=== PATIENT | female | born 1955 | race Caucasian/White ===

== ENCOUNTER 2017-12-23 17:56 | Emergency (ER) | payer OTHER, MEDICAID ==
[~2017-12-23] VITALS: Ht 170.2 cm; Wt 69.0 kg
[2017-12-23] MEDS ORDERED: NITROGLYCERIN0.4 MG SUBLING (18:28)
[2017-12-23] MEDS ORDERED: NORCO 5-325 TA1 EAC1 PO (19:35)
[2017-12-23 19:56] VITALS: BP 166/69
== END 2017-12-23 19:57 | disposition home or self-care (01) ==
LOC: M.ERS 17:56
DX: S60.222A Contusion of left hand, initial encounter (principal); I21.9 Acute myocardial infarction, unspecified; Z95.5 Presence of coronary angioplasty implant and graft; W01.0XXA Fall on same level from slipping, tripping and stumbling without subsequent striking against object, initial encounter; Y93.89 Activity, other specified; Y92.89 Other specified places as the place of occurrence of the external cause; Y99.8 Other external cause status

== ENCOUNTER 2018-03-07 21:12 | Inpatient (IN) | payer OTHER, MEDICAID ==
[~2018-03-07] VITALS: Ht 167.6 cm; Wt 70.8 kg
[~2018-03-07 21:12] MED LIST: NITROGLYCERIN0.4 MG SUBLING; NORCO 5-325 TA1 EAC1 PO
[2018-03-07 21:14] VITALS: BP 180/83
[2018-03-07 21:31] LABS: ABSOLUTE BASOPHILS 0.1 thou/uL (0.0-0.2); ABSOLUTE EOSINOPHILS 0.3 thou/uL (0.0-0.7); ABSOLUTE LYMPHOCYTES 2.8 thou/uL (0.8-5.3); ABSOLUTE MONOCYTES 0.5 thou/uL (0.0-1.2); ABSOLUTE NEUTROPHILS 3.8 thou/uL (1.6-8.1); BASOPHILS 0.8 %; EOSINOPHILS 3.7 %; HEMATOCRIT 43.4 % (37.0-47.0); HEMOGLOBIN 14.4 gm/dL (12.0-15.0); LYMPHOCYTES 37.3 %; MCH 28.7 pg (26.0-34.0); MCHC 33.3 g/dL (28.0-37.0); MCV 86.3 fL (80.0-100.0); MONOCYTES 6.7 %; MPV 7.9 fl. (7.2-11.1); NUCLEATED RBCS 0 /100WBC; PLATELET COUNT* 367 thou/uL (150-400); POLYS 51.5 %; RBC 5.02 mil/uL (4.20-5.00); RDW-CV 13.8 % (10.5-14.5); WBC 7.4 thou/uL (4.0-11.0)
[2018-03-07 22:10] LABS: URINE BILIRUBIN NEGATIVE (Negative); URINE BLOOD NEGATIVE (Negative); URINE CLARITY CLEAR; URINE COLOR YELLOW; URINE GLUCOSE-RANDOM NEGATIVE (Negative); URINE KETONES 1+ (Negative); URINE LEUKOCYTES TRACE (Negative); URINE NITRITE POSITIVE (Negative); URINE PROTEIN NEGATIVE (Negative); URINE SPECIFIC GRAVITY 1.025 (1.005-1.030); URINE UROBILINOGEN 0.2 E.U./dl (0.2-1.0)
[2018-03-07 22:17] LABS: MUCUS >6 Heavy strn/LPF (None Seen); SQUAMOUS 4-10 Moderate /LPF (0-3)
[2018-03-07 22:18] LABS: BACTERIA >30 Many /HPF (None Seen); CRYSTALS None Seen /LPF (None Seen); HYALINE CASTS 0-3 Few /LPF (None Seen); URINE RBC 0-2 Rare /HPF (0-2); URINE WBC 6-15 Few /HPF (0-5)
[2018-03-07 22:21] LABS: ANION GAP 8 mmol/L (7-16); BUN 12 mg/dL (7-18); CALCIUM 8.7 mg/dL (8.5-10.1); CHLORIDE 100 mmol/L (98-107); CO2 30 mmol/L (21-32); CREATININE 0.9 mg/dL (0.6-1.3); GLUCOSE 157 mg/dL (70-99); POTASSIUM 3.9 mmol/L (3.5-5.1); SODIUM 138 mmol/L (136-145)
[2018-03-07 22:24] LABS: ALBUMIN 3.4 g/dL (3.4-5.0); ALKALINE PHOSPHATASE 130 U/L (46-116); PHOSPHORUS* 4.4 mg/dL (2.5-4.9); SGOT 28 U/L (15-37); SGPT 23 U/L (30-65); TOTAL BILIRUBIN 0.1 mg/dL (<0.1-1.0); TOTAL PROTEIN 8.4 g/dL (6.4-8.2); TROPONIN-I LEVEL <0.06 ng/mL (<0.06)
[2018-03-08] VITALS (40 sets, daily range): BP systolic 120–165; BP diastolic 41–68
[2018-03-08] LABS: AMP/METHAMP Negative (Negative); BARBITURATES Negative (Negative); BENZODIAZEPINES Negative (Negative); COCAINE Negative (Negative); METHADONE Negative (Negative); OPIATES Negative (Negative); PCP Negative (Negative); THC Negative (Negative)
[2018-03-08 10:59] LABS: ALBUMIN 2.8 g/dL (3.4-5.0); ALKALINE PHOSPHATASE 113 U/L (46-116); ANION GAP 7 mmol/L (7-16); BUN 13 mg/dL (7-18); CALCIUM 8.3 mg/dL (8.5-10.1); CHLORIDE 106 mmol/L (98-107); CHOLESTEROL 133 mg/dL (<200); CO2 28 mmol/L (21-32); CREATININE 0.7 mg/dL (0.6-1.3); GLUCOSE 88 mg/dL (70-99); HDL CHOLESTEROL 39 mg/dL (>40); LDL CHOLESTEROL 83 mg/dL (<100); POTASSIUM 4.1 mmol/L (3.5-5.1); SGOT 21 U/L (15-37); SGPT 24 U/L (30-65); SODIUM 141 mmol/L (136-145); TC:HDL 3.4 Ratio (Not establshd); TOTAL BILIRUBIN 0.3 mg/dL (<0.1-1.0); TOTAL PROTEIN 7.1 g/dL (6.4-8.2); TRIGLYCERIDE 57 mg/dL (<150); VLDL 11 mg/dL (<40)
--- NOTE | 2018-03-08 11:00 | EKG ---
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
[2018-03-08 11:01] LABS: SERUM ASSESSMENT Clear
[2018-03-08 13:28] LABS: BE 0.8 mmol/L (-2 to +3); PCO2 43.7 mmHg (35.0-45.0); PO2 116.4 mmHg (75.0-100.0); pH 7.393 (7.340-7.450)
--- NOTE | 2018-03-08 18:19 | 2DMMODE ---
[place] [address] 2 D/M-MODE ECHOCARDIOGRAM Name: HEADLILLIAM Room: [address] IN [facility]#: [id number] Admission: 03/08/18 Attend Phys: Earl Copeland, Discharge: Date of : 59 Date of Service: 03/08/18 1819 Report #: [id number] THIS REPORT FOR: //name// APPROVED REPORT Study performed: 03/08/2018 14:46:17 EXAM: Comprehensive 2D, Doppler, and color-flow Echocardiogram Patient Location: In-Patient Room #: [facility] Status: routine BSA: 1.78 HR: 50 bpm BP: 139/53 mmHg Rhythm: NSR Other Information Study Quality: Good Indications CVA/TIA Echo Enhancing Agent Indication: Rule out Shunt Agent(s) / Amount(s) Used: Agitated Saline 10 cc 2D Dimensions IVSd: 14.25 (7-11mm) LVOT Diam: 18.68 (18-24mm) LVDd: 38.55 mm PWd: 12.58 (7-11mm) Ascending Ao: 29.24 (22-36mm) LVDs: 16.39 (25-40mm) Aortic Root: 30.17 mm Volumes Left Atrial Volume (Systole) LA ESV Index: 26.20 mL/m2 Aortic Valve AoV Peak Ernesto.: 1.28 m/s AO Peak Gr.: 6.59 mmHg LVOT Max P.54 mmHg AO Mean Gr.: 3.09 mmHg LVOT Mean P.57 mmHg LVOT Max V: 0.94 m/s AO V2 VTI: 27.43 cm LVOT Mean V: 0.57 m/s GULSHAN (VTI): 2.25 cm2 LVOT V1 VTI: 22.48 [place] [address] 2 D/M-MODE ECHOCARDIOGRAM Name: LILLIAM HEAD Room: [address] IN ..#: [id number] Admission: 03/08/18 Attend Phys: Earl Copeland, Discharge: Date of : 59 Date of Service: 03/08/18 1819 Report #: [id number] Mitral Valve E/A Ratio: 1.37 MV Decel. Time: 236.20 ms MV E Max Ernesto.: 0.86 m/s MV PHT: 68.50 ms MVA (PHT): 3.21 cm2 TDI E/Lateral E': 6.62 E/Medial E': 7.82 Medial E' Ernesto.: 0.11 m/s Lateral E' Ernesto.: 0.13 m/s Pulmonary Valve PV Peak Ernesto.: 0.88 m/s PV Peak Gr.: 3.10 mmHg Left Ventricle The left ventricle is normal size. There is normal LV segmental wall motion. Mild concentric left ventricular hypertrophy. Left ventricular systolic function is normal. The left ventricular ejection fraction is within the normal range. LVEF is 60-65%. This study is not technically sufficient to allow evaluation of the LV diastolic function. Right Ventricle The right ventricle is normal size. The right ventricular systolic function is normal. Atria The left atrium size is normal. Bubble study shows a small right to left interatrial shunt The right atrium size is normal. Aortic Valve The aortic valve is normal in structure. No aortic regurgitation is present. There is no aortic valvular stenosis. Mitral Valve The mitral valve is normal in structure. Trace mitral regurgitation. No evidence of mitral valve stenosis. Tricuspid Valve The tricuspid valve is normal in structure. Unable to assess PA pressure. Trace tricuspid regurgitation. Pulmonic Valve The pulmonary valve is normal in structure. There is no pulmonic [place] [address] 2 D/M-MODE ECHOCARDIOGRAM Name: LILLIAM HEAD Room: [address] IN .#: [id number] Admission: 03/08/18 Attend Phys: Earl Copeland, Discharge: Date of : 59 Date of Service: 03/08/18 1819 Report #: [id number] Great Vessels The aortic root is normal in size. IVC is normal in size and collapses with >50% inspiration Pericardium There is no pericardial effusion. <Conclusion> Mild concentric left ventricular hypertrophy. LVEF is 60-65%. Bubble study shows a small right to left interatrial shunt <ELECTRONICALLY SIGNED> By: Eldon Lewis MD, FACC 03/08/181818 18 18 Eldon Lewis MD, FACC /INF
[2018-03-08 23:07] LABS: GLYCOHEMOGLOBIN (HGB A1C) 5.6 % (4.8-5.6)
[2018-03-09] VITALS (14 sets, daily range): BP systolic 109–174; BP diastolic 41–63
[2018-03-09 05:00] LABS: HEMATOCRIT 38.4 % (37.0-47.0); HEMOGLOBIN 12.6 gm/dL (12.0-15.0); MCH 28.7 pg (26.0-34.0); MCHC 32.7 g/dL (28.0-37.0); MCV 87.7 fL (80.0-100.0); MPV 8.4 fl. (7.2-11.1); RBC 4.38 mil/uL (4.20-5.00); RDW-CV 13.8 % (10.5-14.5); WBC 6.8 thou/uL (4.0-11.0)
[2018-03-09 05:32] LABS: ALBUMIN 2.6 g/dL (3.4-5.0); CALCIUM 7.6 mg/dL (8.5-10.1); CREATININE 0.6 mg/dL (0.6-1.3); MAGNESIUM 1.8 mg/dL (1.8-2.4); POTASSIUM 4.3 mmol/L (3.5-5.1); TOTAL BILIRUBIN 0.3 mg/dL (<0.1-1.0); TOTAL PROTEIN 6.6 g/dL (6.4-8.2)
[2018-03-09 15:48] LABS: AMP/METHAMP Negative (Negative); BARBITURATES Negative (Negative); BENZODIAZEPINES Negative (Negative); COCAINE Negative (Negative); METHADONE Negative (Negative); OPIATES Negative (Negative); PCP Negative (Negative); THC Negative (Negative)
[2018-03-10] VITALS (15 sets, daily range): BP systolic 107–151; BP diastolic 33–98
[2018-03-10 04:29] LABS: ALBUMIN 2.6 g/dL (3.4-5.0); ALKALINE PHOSPHATASE 103 U/L (46-116); ANION GAP 6 mmol/L (7-16); BUN 9 mg/dL (7-18); CALCIUM 7.8 mg/dL (8.5-10.1); CHLORIDE 108 mmol/L (98-107); CO2 28 mmol/L (21-32); CREATININE 0.6 mg/dL (0.6-1.3); GLUCOSE 81 mg/dL (70-99); MAGNESIUM 1.8 mg/dL (1.8-2.4); POTASSIUM 3.9 mmol/L (3.5-5.1); SGOT 25 U/L (15-37); SGPT 23 U/L (30-65); SODIUM 142 mmol/L (136-145); TOTAL BILIRUBIN 0.2 mg/dL (<0.1-1.0); TOTAL PROTEIN 6.6 g/dL (6.4-8.2); TROPONIN-I LEVEL <0.06 ng/mL (<0.06)
[2018-03-10 04:30] LABS: HEMATOCRIT 37.9 % (37.0-47.0); HEMOGLOBIN 12.3 gm/dL (12.0-15.0); MCH 28.3 pg (26.0-34.0); MCHC 32.4 g/dL (28.0-37.0); MCV 87.6 fL (80.0-100.0); MPV 8.2 fl. (7.2-11.1); RBC 4.32 mil/uL (4.20-5.00); RDW-CV 13.5 % (10.5-14.5); WBC 6.5 thou/uL (4.0-11.0)
--- NOTE | 2018-03-10 13:00 | CON ---
[address] [address] CONSULTATION Name: ADILENELILLIAM M Room: [address] IN .R.#: [id number] Admission: 03/08/18 Attend Phys: Earl Copeland MD Discharge: Date of : 59 Report #: [id number] THIS REPORT FOR: //name// CC: Earl Stephen DATE OF SERVICE: 03/08/2018 CARDIOLOGY CONSULTATION HISTORY OF PRESENT ILLNESS: The patient is a 62-year-old single white female who I was asked to see in the hospital after she presented being difficult to arouse. The history is obtained from the current records as well as a sister who is now present. According to the records, the patient was on the phone with her daughter last night at about 9 o'clock. Apparently, the patient then became confused. When the daughter went to the home, the patient was difficult to arouse. Paramedics arrived. She was only responsive to pain. She had stable vital signs. She was given Narcan without response. The patient did complain of headache apparently. She was noted to be weak. There was little in the way of other information. PAST MEDICAL HISTORY: Apparently, the patient has had a previous hysterectomy, appendectomy; apparently, she had a previous myocardial infarction and stent placement. MEDICATIONS: Only home medication was hydrocodone. ALLERGIES: SHE HAS INTOLERANCE TO ASPIRIN. SOCIAL HISTORY: She has been before, has 2 children. Currently lives with boyfriend here in [place]. She does smoke. She is not working. She has not worked for years apparently because she is slow mentally. She does not do alcohol. Apparently, according to the sister, she does use drugs. REVIEW OF SYSTEMS: There has been no previous history of stroke, asthma, peptic ulcer disease, liver disease, kidney disease or cancer. PHYSICAL EXAMINATION: GENERAL: Revealed a middle-aged female, lying in bed. Her eyes were closed. VITAL SIGNS: She has blood pressure of 150/80, pulse 60. She is afebrile. HEENT: She is anicteric. Conjunctivae are pink. Mucous membranes are dry. NECK: Veins do not appear distended. No carotid bruits. CHEST: Clear to auscultation. CARDIOVASCULAR: Regular rate and rhythm. ABDOMEN: Soft. EXTREMITIES: No edema. Dorsalis [place] [address] CONSULTATION Name: LILLIAM HEAD Room: [address]#: [id number] Admission: 03/08/18 Attend Phys: Earl Copeland MD Discharge: Date of : 59 Report #: [id number] SKIN: Cool and dry. NEUROLOGIC: She would open her eyes to voice, but would not follow commands. She did not have much response to pain. LABORATORY DATA: Her ECG on admission last night showed sinus bradycardia. There was no ST or T-wave change noted. Her workup so far, sodium 141, creatinine 0.7, glucose 88. Liver function studies are normal. Troponin 0.06. Her white blood cell count 7.4, hemoglobin 14.4. Urine drug screen negative so far. Her MRI of the head done shows chronic microvascular ischemia. No acute abnormalities. She had a chest x-ray on admission that showed normal heart size, clear lung tena. IMPRESSION AND RECOMMENDATIONS: 1. Hypertension. The patient is currently on IV Cardene. 2. Altered mental status, suspect metabolic. However, the patient was treated with TPA. 3. Tobacco abuse. 4. History of illicit drug use. <ELECTRONICALLY SIGNED> By: Ramon Subramanian MD, FACC 03/10/18 1300 1316 Datarun Lewis MD, FACC /nt
[2018-03-11] VITALS (7 sets, daily range): BP systolic 96–151; BP diastolic 46–80
[2018-03-11 05:01] LABS: HEMATOCRIT 38.8 % (37.0-47.0); MCH 29.1 pg (26.0-34.0); MCHC 33.4 g/dL (28.0-37.0); MPV 8.1 fl. (7.2-11.1); RBC 4.46 mil/uL (4.20-5.00); RDW-CV 13.2 % (10.5-14.5); WBC 6.2 thou/uL (4.0-11.0)
[2018-03-11 05:28] LABS: ALBUMIN 2.9 g/dL (3.4-5.0); CALCIUM 8.2 mg/dL (8.5-10.1); CREATININE 0.6 mg/dL (0.6-1.3); MAGNESIUM 1.9 mg/dL (1.8-2.4); POTASSIUM 3.7 mmol/L (3.5-5.1); TOTAL BILIRUBIN 0.1 mg/dL (<0.1-1.0); TOTAL PROTEIN 7.3 g/dL (6.4-8.2)
[2018-03-12 07:50] VITALS: BP 130/68
[2018-03-12] MEDS ORDERED: KEPPRA 500 MG500 M1 PO (09:07)
[2018-03-12] MEDS ORDERED: PROCARDIA XL30 MG PO (09:07)
[2018-03-12 10:19] VITALS: BP 130/68
[2018-03-12 11:10] VITALS: BP 130/68
--- NOTE | 2018-03-15 09:32 | EEG ---
[address] [address] EEG STUDY REPORT Name: LILLIAM HEAD Room: [address]R.#: [id number] Admission: 03/08/18 Attend Phys: Earl Copeland MD Discharge: 03/12/18 Date of : 59 Report #: [id number] THIS REPORT FOR: //name// CC: Earl Stephen DATE OF SERVICE: 03/08/2018 This patient is being evaluated for the possibility of stroke. EEG was done by placing the electrodes by standard 10-20 system of electrode placement. Both referential and sequential montages were used for recording. The patient's background activity is up to about 9-10 Hz and 30 microvolt. Photic stimulation is unremarkable. The patient demonstrates multiple episodes of spike and slow wave activity, which is generalized. IMPRESSION: This is an abnormal EEG demonstrating multiple episodes of spike and slow wave activity, which will be consistent with a diagnosis of seizure disorder. Thank you very much for this referral. <ELECTRONICALLY SIGNED> By: Jorge A Canela MD 03/15/18 0932 1456 1502Pbhavin Canela MD /nt
--- NOTE | 2018-03-15 09:32 | CON ---
[address] [address] CONSULTATION Name: LILLIAM HEAD Room: [address] IN M.R.#: [id number] Admission: 03/08/18 Attend Phys: Earl Copeland MD Discharge: 03/12/18 Date of : 59 Report #: [id number] THIS REPORT FOR: //name// CC: Earl Stephen DATE OF SERVICE: 03/08/2018 HISTORY OF PRESENT ILLNESS: This is a 62-year-old female patient who was evaluated by me this morning. The patient was discussed with the nurses. The patient provides some history, but the history is not reliable. I talked to the patient's family. Even that history is not reliable. Talking to the Emergency Room physician, this patient has presented with acute onset of speech difficulty as well as weakness on the left side. Her NIH was 16. They evaluated the patient for TPA and as I understand after excluding any contraindication, they gave the TPA after discussing with the patient and the family, indication, potential complication and alternatives. The patient continued to do poorly. She is not much responsive. Her speech is not good. She can tell me in things, but it is a pretty dysarthric speech. This all came suddenly, symptoms are still severe. REVIEW OF SYSTEMS: A 14-point review of system was carried out, the best I can carry out from the family. The patient has a history suggestive of seizures. They started when she was 18. She was having grand mal seizures. It became worse during the . She lives with her . It is not clear how many seizures she gets now. The only thing daughter knows is that she has not had any seizure from the last 60 days. To best of the daughter's knowledge, she has never been on any anticonvulsant. She does have a prior history of a stent put in. They also indicated that she had a blood clot there. I do not know whether by that they mean that there is thrombus in the heart or that was a thrombus in the coronary. She continued to smoke. This was a relevant 14-point review of system I can get from the daughter or the patient or from the record. PAST MEDICAL HISTORY: Positive for stent put in, but not for any stroke. FAMILY HISTORY: Negative for early-age strokes. SOCIAL HISTORY: She continued to smoke, but she does not drink alcohol and has not drunk any alcohol in the past. PHYSICAL EXAMINATION: Pretty limited. NEUROLOGIC: She is not cooperative and she is sleepy. She wakes up some. When she wakes up, she will occasionally follow simple commands, but most of the time she will not. When I ask her what her name is, she tells me her name in a very dysarthric voice. When I ask her what month it is, she tells me that in a very dysarthric voice. She is not moving the left side as good, [place] [address] CONSULTATION Name: HEADLILLIAM Room: [address] IN ..#: [id number] Admission: 03/08/18 Attend Phys: Earl Copeland MD Discharge: 03/12/18 Date of : 59 Report #: [id number] all. Right side, she moves. So, clinically she does look like she has a deficit on the left side. She does not cooperate with the sensation. She did not cooperate with cerebellar sign or fundus on my examination, but from the record, it looks like that at one time, she had trouble with coordination on the left side. CARDIAC: Clinically appear noncontributory. VITAL SIGNS: Blood pressure is 135/46, respirations 17, pulse is 54, temperature is 97.9. LABORATORY DATA: RBC is 5.02. Her CTA was reviewed and that looks unremarkable. MRI is pending. IMPRESSION: The patient's clinical presentation is suggestive of stroke. However, with this history that she had seizures in the past, which was not available last night from the family, the possibility of superimposed seizures needs to be excluded. She was appropriately given TPA last night in the Emergency Room because she has presented with left-sided weakness as well as speech difficulty. We will wait for the MRI to see if there is any evidence for stroke, if there are multiple measures need to be instituted. She is still weak on the left side. We will check an EEG to see to see if there is any active seizure activity going on. If she does have a history of seizure, she should take seizure precautions and we will try this patient on some seizure medication if she is agreeable and agree to be compliant. All of it will be discussed with the family and we will await this workup. Thank you for very much for this referral. <ELECTRONICALLY SIGNED> By: Jorge A Canela MD 03/15/18 0932 1018 1313Pbhavin Canela MD /nt
== END 2018-03-12 14:30 | disposition home health service (06) | DRG 304 ==
LOC: M.ERS 21:12 → M.ICU 03-08 01:13 → M.TBA-ER 03-08 01:13 → M.ICU 03-08 01:30 → M.2W 03-10 13:17 → M.ORTHSURG 03-11 19:13
PROVIDERS: Emergency Medicine Emergency Medical Services; Family Medicine; ADMIT Internal Medicine
DX: I16.0 Hypertensive urgency (principal); G93.41 Metabolic encephalopathy; I16.1 Hypertensive emergency; E44.1 Mild protein-calorie malnutrition; N39.0 Urinary tract infection, site not specified; G40.909 Epilepsy, unspecified, not intractable, without status epilepticus; I10 Essential (primary) hypertension; F17.210 Nicotine dependence, cigarettes, uncomplicated; I25.10 Atherosclerotic heart disease of native coronary artery without angina pectoris; I25.2 Old myocardial infarction; Z95.5 Presence of coronary angioplasty implant and graft; Z88.6 Allergy status to analgesic agent; Z90.710 Acquired absence of both cervix and uterus; Z90.49 Acquired absence of other specified parts of digestive tract; Z79.899 Other long term (current) drug therapy; Z68.25 Body mass index [BMI] 25.0-25.9, adult

== ENCOUNTER → 2018-05-22 | Outpatient (CLI) | payer OTHER, MEDICAID ==
[~2018-05-22] MED LIST changes: +KEPPRA 500 MG500 M1 PO; +PROCARDIA XL30 MG PO
--- NOTE | ~2018-05-22 | EEG ---
[address] [address] EEG STUDY REPORT Name: LILLIAM HEAD Room: [facility]#: [id number] Admission: 05/22/18 Attend Phys: Jorge A Canela MD Discharge: Date of : 59 Report #: [id number] THIS REPORT FOR: //name// CC: Jorge A Stephen DATE OF SERVICE: 05/22/2018 This patient is being evaluated for a followup for the patient's seizure disorder. The patient's background activity in this EEG is about 8 Hz and 30 microvolt. The patient went to sleep that is associated with bilaterally symmetrical sleep spindle and vertex sharp waves. Two episodes of spike and slow wave activity was noticed. Photic stimulation was unremarkable. IMPRESSION: This patient's EEG still demonstrate seizure activity, but it is markedly reduced than last time. Thank you very much for this referral. By: 1125 1150Jorge A Canela MD /nt
== END ==
LOC: M.CRD 13:42
DX: G40.909 Epilepsy, unspecified, not intractable, without status epilepticus (principal)

== ENCOUNTER 2018-10-18 18:51 | Emergency (ER) | payer OTHER, MEDICAID ==
[~2018-10-18] VITALS: Ht 165.1 cm; Wt 71.9 kg
[2018-10-18 19:31] LABS: ABSOLUTE EOSINOPHILS 0.2 thou/uL (0.0-0.7); ABSOLUTE LYMPHOCYTES 2.6 thou/uL (0.8-5.3); ABSOLUTE MONOCYTES 0.9 thou/uL (0.0-1.2); ABSOLUTE NEUTROPHILS 7.8 thou/uL (1.6-8.1); BASOPHILS 0.4 %; EOSINOPHILS 1.5 %; HEMATOCRIT 38.3 % (37.0-47.0); HEMOGLOBIN 12.7 gm/dL (12.0-15.0); LYMPHOCYTES 22.3 %; MCH 28.9 pg (26.0-34.0); MCHC 33.2 g/dL (28.0-37.0); MONOCYTES 7.8 %; MPV 8.1 fl. (7.2-11.1); NUCLEATED RBCS 0 /100WBC; PLATELET COUNT* 264 thou/uL (150-400); RDW-CV 13.6 % (10.5-14.5); WBC 11.5 thou/uL (4.0-11.0)
[2018-10-18 19:45] LABS: ALBUMIN 2.7 g/dL (3.4-5.0); CALCIUM 8.6 mg/dL (8.5-10.1); CREATININE 0.9 mg/dL (0.6-1.3); POTASSIUM 3.9 mmol/L (3.5-5.1); TOTAL BILIRUBIN 0.2 mg/dL (<0.1-1.0); TOTAL PROTEIN 7.2 g/dL (6.4-8.2)
[2018-10-18] MEDS ORDERED: ZPAK PO (20:15)
[2018-10-18] MEDS ORDERED: VENTOLIN HFA 1818 GM INH (20:21)
[2018-10-18] MEDS ORDERED: MUCINEX600 MG PO (20:22)
[2018-10-18 20:33] VITALS: BP 139/61
--- NOTE | 2018-10-19 12:31 | EKG ---
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 : 1955 Requested By: Everardo Lange Order Number: [id number] Reading MD: Roberto Yan Measurements Intervals [place] Rate: 82 P: 57 [place]: 136 QRS: 41 QRSD: 83 T: 90 QT: 366 QTc: 428 Interpretive Statements Sinus rhythm Probable left atrial enlargement Nonspecific T abnormalities, lateral leads Compared to ECG 03/07/2018 22:01:53 T-wave abnormality now present Electronically Signed On 10-19-2018 12:31:38 CDT by Roberto Yan [email or web address] <ELECTRONICALLY SIGNED> By: Roberto Yan MD, [facility] 10/19/18 1231 1909 190 Roberto Yan MD, [facility] /EPI
== END 2018-10-18 20:34 | disposition home or self-care (01) ==
LOC: M.ERS 18:51
PROVIDERS: Nurse Practitioner Family
DX: J18.8 Other pneumonia, unspecified organism (principal); Z88.6 Allergy status to analgesic agent; Z90.710 Acquired absence of both cervix and uterus; Z90.49 Acquired absence of other specified parts of digestive tract

== ENCOUNTER → 2018-12-06 | Outpatient (CLI) | payer OTHER, MEDICAID ==
[~2018-12-06] MED LIST changes: +MUCINEX600 MG PO; +VENTOLIN HFA 1818 GM INH; +ZPAK PO
== END ==
LOC: M.ULTRA 12-02 08:26
DX: Z12.31 Encounter for screening mammogram for malignant neoplasm of breast (principal); K80.20 Calculus of gallbladder without cholecystitis without obstruction; R22.33 Localized swelling, mass and lump, upper limb, bilateral; R16.0 Hepatomegaly, not elsewhere classified

== ENCOUNTER → 2018-12-18 | Outpatient (CLI) | payer OTHER, MEDICAID | LOC: M.ULTRA 12:47 | DX: N63.20 Unspecified lump in the left breast, unspecified quadrant (principal) ==

== ENCOUNTER → 2019-02-06 | Outpatient (CLI) | payer OTHER, MEDICAID ==
--- NOTE | 2019-02-06 10:51 | CARDNUC ---
[place] [address] CARDIAC NUCLEAR IMAGING REPORT Name: LILLIAM HEAD Room: [facility]#: [id number] Admission: 02/06/19 Attend Phys: Carly West Discharge: Date of : 59 Date of Service: 02/06/19 1051 Report #: [id number] THIS REPORT FOR: //name// APPROVED REPORT Study performed: 02/06/2019 09:20:10 Exam: Nuclear Stress Test Indication: Pre-Operative CV evaluation Patient Location: Out-Patient Stress Tech: Haley Tran Stress Nurse: Leonora Moody RN NM Tech:TAMI Mercado Ht: 5 ft 5 in Wt: 152 lbs BSA: 1.76 m2 BMI: 25.29 Medical History Medical History: mi, epilepsy, copd, cad, hyperlipidemia, hypertension Medications: amlodipine Allergies: pcn, asa Cardiac Risk Factors: age,hyperlipidemia, hypertension, tobacco, family hx Previous Cardiac Procedures: pci Exercise History: Indeterminate Stress Test Details Stress Test: Pharmacologic stress testing performed using 0.4 mg of regadenoson per 5 mL given IV over 10 seconds. Reason for pharmacologic stress test: physical limitation. HR Resting HR: 54 bpm Max Heart Rate (APMHR): 159 bpm Max HR Achieved: 81 bpm Target HR (85% APMHR): 135 bpm % of APMHR: 50 Recovery HR: 73 bpm BP Resting BP: 177/66 mmHg Max BP: 136/68 mmHg ECG Resting ECG: Sinus Rhythm Stress ECG: [place] [address] CARDIAC NUCLEAR IMAGING REPORT Name: LILLIAM HEAD Room: [facility]#: [id number] Admission: 02/06/19 Attend Phys: Carly West Discharge: Date of : 59 Date of Service: 02/06/19 1051 Report #: [id number] Change: None Arrhythmia: None Recovery ECG: Sinus Rhythm Recovery ST Change: None Recovery Arrhythmia: None Clinical Reason for Termination: Completed protocol Exercise duration: 0 min sec Exercise capacity: 1 METs Patient had no significant cardiac symptoms with Lexiscan infusion. Nurse Comments pt unable to walk on treadmill due to generalized weakness Stress ECG Conclusion The baseline 12-lead EKG shows sinus rhythm without significant ST or T wave abnormality. EKGs obtained during and post Lexiscan infusion show sinus rhythm with no significant ST or T wave changes when compared to baseline. There were no stress-induced arrhythmias. NM EXAM: Myocardial Perfusion REST/STRESS Imaging Protocol: Rest Tc-99m/Stress Tc-99m 1 day Resting Data Rest SPECT myocardial perfusion imaging was performed in supine position 30 minutes following the intravenous injection of 11.3 mCi of Tc-99m Sestamibi. Time of rest injection: 804 Date: 02/06/2019 The images were gated to evaluate regional wall motion and calculate left ventricular ejection fraction. Administration Route: IV Administration Site: Left Hand Pharmacologic Stress Pharmacologic stress test was performed by injecting Regadenoson 0.4 mg IV push followed by the intravenous injection of 36.0 mCi of Tc-99m Sestamibi. Time of stress injection: 929 Date: 02/06/2019 Administration Route: IV Administration Site: Left Hand Gated Stress SPECT was performed 40 minutes after stress injection. The images were gated to evaluate regional wall motion and calculate [place] [address] CARDIAC NUCLEAR IMAGING REPORT Name: LILLIAM HEAD Room: [facility]#: [id number] Admission: 02/06/19 Attend Phys: Carly West Discharge: Date of : 59 Date of Service: 02/06/19 1051 Report #: [id number] Prone imaging was performed. Study Quality Study: Good Artifact: No artifact Study Data At rest, the left ventricular ejection fraction was 68%.. Post stress, the left ventricular ejection was 73%.. TID = 0.94. Perfusion Normal left ventricular perfusion. Wall Motion Normal left ventricular wall motion. Nuclear Conclusion ECG Findings: negative for ischemia Clinical Findings: negative for ischemia Nuclear Findings: negative for ischemia Exercise Capacity: not assessed Left Ventricular Function: normal Risk Study: low Myocardial perfusion images show no defect to suggest infarct or ischemia. Left ventricular systolic function appears normal on gated studies. This is a low risk study. <Conclusion> The baseline 12-lead EKG shows sinus rhythm without significant ST or T wave abnormality. EKGs obtained during and post Lexiscan infusion show sinus rhythm with no significant ST or T wave changes when compared to baseline. There were no stress-induced arrhythmias. <ELECTRONICALLY SIGNED> By: Ramon Subramanian MD, FACC 02/06/19 1051 105 105 Ramon Subramanian MD, FACC /INF
== END ==
LOC: M.NUC 01-24 14:24
DX: I25.118 Atherosclerotic heart disease of native coronary artery with other forms of angina pectoris (principal); I10 Essential (primary) hypertension; E78.00 Pure hypercholesterolemia, unspecified; I25.2 Old myocardial infarction; J44.9 Chronic obstructive pulmonary disease, unspecified; Z95.5 Presence of coronary angioplasty implant and graft; Z72.0 Tobacco use; Z88.0 Allergy status to penicillin; Z88.8 Allergy status to other drugs, medicaments and biological substances; Z79.899 Other long term (current) drug therapy

== ENCOUNTER → 2019-11-18 | Outpatient (CLI) | payer OTHER, MEDICAID ==
--- NOTE | 2019-11-18 15:50 | 2DMMODE ---
[place] [address] 2 D/M-MODE ECHOCARDIOGRAM Name: LILLIAM HEAD Room: [facility]#: [id number] Admission: 11/18/19 Attend Phys: Madeline Angela RN Discharge: Date of : 59 Date of Service: 11/18/19 1548 Report #: [id number] THIS REPORT FOR: cc: Jeffrey Hernández,Jeffrey Asher,Carlo Dye MD [facility] ~ APPROVED REPORT Study performed: 11/18/2019 13:03:27 EXAM: Comprehensive 2D, Doppler, and color-flow Echocardiogram Patient Location: Out-Patient BSA: 1.74 HR: 58 bpm BP: 120/80 mmHg Other Information Study Quality: Good Indications CAD 2D Dimensions IVSd: 11.75 (7-11mm) LVOT Diam: 20.11 (18-24mm) LVDd: 48.22 mm PWd: 9.05 (7-11mm) Ascending Ao: 27.44 (22-36mm) LVDs: 29.13 (25-40mm) Aortic Root: 22.20 mm Volumes Left Atrial Volume (Systole) LA ESV Index: 11.60 mL/m2 Aortic Valve AoV Peak Ernesto.: 1.21 m/s AO Peak Gr.: 5.86 mmHg LVOT Max P.24 mmHg AO Mean Gr.: 3.05 mmHg LVOT Mean P.39 mmHg LVOT Max V: 0.90 m/s AO V2 VTI: 28.79 cm LVOT Mean V: 0.53 m/s GULSHAN (VTI): 2.36 cm2 LVOT V1 VTI: 21.42 cm Mitral Valve E/A Ratio: 1.01 [place] [address] 2 D/M-MODE ECHOCARDIOGRAM Name: LILLIAM HEAD Room: [facility]#: [id number] Admission: 11/18/19 Attend Phys: Madeline Angela RN Discharge: Date of : 59 Date of Service: 11/18/19 1548 Report #: [id number] MV Decel. Time: 227.91 ms MV E Max Ernesto.: 0.62 m/s MV PHT: 66.09 ms MVA (PHT): 3.33 cm2 TDI E/Lateral E': 6.20 E/Medial E': 6.89 Medial E' Ernesto.: 0.09 m/s Lateral E' Ernesto.: 0.10 m/s Pulmonary Valve PV Peak Ernesto.: 0.76 m/s PV Peak Gr.: 2.30 mmHg Left Ventricle The left ventricle is normal size. There is normal LV segmental wall motion. There is normal left ventricular wall thickness. Left ventricular systolic function is normal. The left ventricular ejection fraction is within the normal range. LVEF is 55-60%. Grade I - abnormal relaxation pattern. Right Ventricle The right ventricle is normal size. The right ventricular systolic function is normal. Atria The left atrium size is normal. The right atrium size is normal. Aortic Valve Mild aortic valve sclerosis. No aortic regurgitation is present. There is no aortic valvular stenosis. Mitral Valve The mitral valve is normal in structure. There is no mitral valve regurgitation noted. No evidence of mitral valve stenosis. Tricuspid Valve The tricuspid valve is normal in structure. There is no tricuspid valve regurgitation noted. Pulmonic Valve The pulmonary valve is normal in structure. There is no pulmonic valvular regurgitation. Great Vessels The aortic root is normal in size. IVC [place] [address] 2 D/M-MODE ECHOCARDIOGRAM Name: LILLIAM HEAD Room: [facility]#: [id number] Admission: 11/18/19 Attend Phys: Madeline Angela RN Discharge: Date of : 59 Date of Service: 11/18/19 1548 Report #: [id number] collapses >50% with inspiration. Pericardium There is no pericardial effusion. <Conclusion> The left ventricle is normal size. There is normal left ventricular wall thickness. Left ventricular systolic function is normal. The left ventricular ejection fraction is within the normal range. LVEF is 55-60%. Grade I - abnormal relaxation pattern. The right ventricle is normal size. The left atrium size is normal. Mild aortic valve sclerosis. No aortic regurgitation is present. There is no aortic valvular stenosis. The mitral valve is normal in structure. The tricuspid valve is normal in structure. IVC is normal in size and collapses >50% with inspiration. There is no pericardial effusion. There is normal LV segmental wall motion. <ELECTRONICALLY SIGNED> By: Carlo Avendano MD, FACC 11/18/19 1548 1548 1548 Carlo Avendano MD, FACC /INF
== END ==
LOC: M.CRD 09-04 13:06 → M.ULTRA 09-19 13:30 → M.RAD 09-19 13:30 → M.ULTRA 09-19 14:30 → M.CRD 11-11 09:00 → M.RAD 11-11 09:00 → M.ULTRA 11-11 09:00 → M.CRD 12:59
DX: I35.0 Nonrheumatic aortic (valve) stenosis (principal); I25.10 Atherosclerotic heart disease of native coronary artery without angina pectoris; R09.89 Other specified symptoms and signs involving the circulatory and respiratory systems; N63.20 Unspecified lump in the left breast, unspecified quadrant; R53.83 Other fatigue; N64.89 Other specified disorders of breast; Z80.3 Family history of malignant neoplasm of breast

== ENCOUNTER → 2020-12-16 | Outpatient (CLI) | payer OTHER, MEDICAID | LOC: M.ULTRA 14:27 | PROVIDERS: ATTEND Family Medicine | DX: R22.31 Localized swelling, mass and lump, right upper limb (principal); R22.32 Localized swelling, mass and lump, left upper limb ==

== ENCOUNTER → 2021-01-14 | Day surgery (SDC) | payer OTHER, MEDICAID ==
[2021-01-14 09:01] LABS: ABSOLUTE BASOPHILS 0.1 thou/uL (0.0-0.2); ABSOLUTE EOSINOPHILS 0.3 thou/uL (0.0-0.7); ABSOLUTE LYMPHOCYTES 2.5 thou/uL (0.8-5.3); ABSOLUTE MONOCYTES 0.5 thou/uL (0.0-1.2); ABSOLUTE NEUTROPHILS 3.8 thou/uL (1.6-8.1); BASOPHILS 0.8 %; EOSINOPHILS 3.8 %; HEMOGLOBIN 13.6 gm/dL (12.0-15.0); LYMPHOCYTES 34.8 %; MCH 28.6 pg (26.0-34.0); MCHC 33.2 g/dL (28.0-37.0); MCV 86.2 fL (80.0-100.0); MONOCYTES 7.5 %; MPV 7.5 fl. (7.2-11.1); NUCLEATED RBCS 0 /100WBC; PLATELET COUNT* 318 thou/uL (150-400); POLYS 53.1 %; RBC 4.76 mil/uL (4.20-5.00); RDW-CV 13.8 % (10.5-14.5); WBC 7.1 thou/uL (4.0-11.0)
[2021-01-14 09:24] LABS: CALCIUM 8.7 mg/dL (8.5-10.1); CREATININE 0.8 mg/dL (0.6-1.3); POTASSIUM 3.9 mmol/L (3.5-5.1)
--- NOTE | 2021-01-14 09:48 | EKG ---
[place] [address] ELECTROCARDIOGRAM REPORT Name: LILLIAM HEDA Room: [facility]#: [id number] Admission: 01/14/21 Attend Phys: Pito Casey Discharge: Date of : 59 Date of Service: 01/14/21 0842 Report #: [id number] THIS REPORT FOR: //name// [facility] Test Date: 2021-01-14 Test Time: 08:42:19 Pat Name: LILLIAM HEAD Department: Room: Gender: F Eligibility Specialist: : 1955 Requested By: Pito Goldman Order Number: [id number] Reading MD: Eldon Lewis Measurements Intervals [place] Rate: 58 P: 76 [place]: 141 QRS: 35 QRSD: 84 T: 78 QT: 423 QTc: 416 Interpretive Statements Sinus rhythm Probable left atrial enlargement Compared to ECG 10/18/2018 19:09:50 T-wave abnormality no longer present Electronically Signed On 01-14-2021 9:48:17 CDT by Eldon Lewis [email or web address] <ELECTRONICALLY SIGNED> By: Eldon Lewis MD, [facility] 01/14/21 0948 0842 0842 Eldon Lewis MD, [facility] /EPI
--- NOTE | 2021-01-15 17:06 | OP ---
[facility] [address] [place] [address] OPERATIVE REPORT Name: LILLIAM HEAD Room: [facility]#: [id number] Admission: 01/14/21 Attend Phys: Pito Goldman Discharge: Date of : 59 Report #: [id number] THIS REPORT FOR: cc: Jeffrey Hernández Vincent R. DO Patterson,Pito Lomas MD ~ DATE OF SURGERY: 01/14/2021 PREOPERATIVE DIAGNOSES: 1. Right elbow mass. 2. Bilateral arm benign masses, 1 cm. POSTOPERATIVE DIAGNOSES: 1. Right elbow mass. 2. Bilateral arm benign masses, 1 cm. OPERATIONS: 1. Excision of right elbow benign masses x 2, both 1 cm. 2. Excision of left elbow mass, benign, 1 cm. SURGEON: Pito Goldman MD ANESTHESIA: General. ESTIMATED BLOOD LOSS: Minimal. SPECIMENS: 1. Right proximal elbow mass. 2. Right distal elbow mass. 3. Left elbow mass. DESCRIPTION OF PROCEDURE: After informed consent was obtained, the patient was brought to the operating room and placed supine. SCDs were placed and working, preoperative antibiotics were administered, general anesthesia was induced. The bilateral arms were prepped and draped in the usual sterile fashion. Attention was then directed to the right side. There was a proximal and distal lesion. These were both incised with 1 cm incisions. Cautery dissection was made down through the subcutaneous tissue. These were subcutaneous masses and they were excised with cautery. The skin was then closed with interrupted 4-0 nylon. Attention was then directed to the right side. Again, 1 cm incision was made. Cautery dissection was made down to the subcutaneous area. The mass was excised with cautery. The skin was closed with 4-0 nylon. Sterile dressings were applied. COMPLICATIONS: [place] [address] OPERATIVE REPORT Name: LILLIAM HEAD Room: [facility]#: [id number] Admission: 01/14/21 Attend Phys: Pito Goldman Discharge: Date of : 59 Report #: [id number] DISPOSITION: The patient was taken to recovery in satisfactory condition. <ELECTRONICALLY SIGNED> By: Pito Goldman MD 01/15/21 1706 1620 1727Pito Goldman MD /nt
--- NOTE | 2021-01-25 10:50 | PATH ---
[address] [address] PATHOLOGY RPT PROCEDURE Name: LILLIAM DURAN Room: [facility].#: [id number] Admission: 01/14/21 Date of : 59 Discharge: Report #: [id number] Path Case #: [id number] [facility] Accession Number: [id number] . 01 Material submitted: . PART A: elbow - RIGHT ELBOW DISTAL MASS. Modifiers: right, distal PART B: elbow - RIGHT PROXIMAL ELBOW MASS. Modifiers: right, proximal PART C: elbow - LEFT ELBOW MASS. Modifiers: left . 01 Clinical history: . EXCISION MASS BILATERAL ARM MASSES . 02 Diagnosis: A. Tenosynovium and soft tissue (right elbow distal mass): - Necrotizing granulomatous change. . B. Tenosynovium and soft tissue (right elbow proximal mass): - Necrotizing granulomatous change. . C. Tenosynovium and soft tissue (left elbow proximal mass): - Necrotizing granulomatous change. (SAVANNAH/michelet; 01/17/2021) LBQ 01/18/2021 1155 Local . 02 Comment: This overall appearance could be compatible with multiple rheumatoid nodules. . PASF on block A1: Negative PASF on block B1: Negative PASF on block C1: Negative AFB on block A1: Negative AFB on block B1: Negative AFB on block C1: Negative (SWK:pit; 01/18/2021) . 02 Electronically signed: . Sukhdeep Rawls MD, Pathologist NPI- [id number] . 01 Gross description: . A. The specimen is received in formalin, labeled "Lilliam Duran, right elbow distal mass". Received is a segment of pink-sims fibrous soft tissue measuring 2.8 x 1.9 x 1.2 cm in greatest dimensions. Sectioning reveals pale pink, homogenous cut surfaces. The specimen is submitted representatively in [place] [address] PATHOLOGY RPT PROCEDURE Name: LILLIAM DURAN Room: [facility].#: [id number] Admission: 01/14/21 Date of : 59 Discharge: Report #: [id number] Path Case #: [id number] B. The specimen is received in formalin, labeled "Lilliam Duran, right proximal elbow mass". Received is a segment of pink-sims fibrous soft tissue measuring 1.6 x 1.0 x 0.6 cm in greatest dimensions. Sectioning reveals pale sims, homogenous cut surfaces. The specimen is bisected and entirely submitted in cassette B1. . C. The specimen is received in formalin, labeled "Lilliam Duran, left elbow mass". Received is a segment of pale sims fibrous soft tissue measuring 1.2 x 1.1 x 0.6 cm in greatest dimensions. Sectioning reveals pale sims, homogenous cut surfaces. The specimen is bisected and entirely submitted in cassette C1. (CAA; 01/15/2021) QAC/QAC 01/15/2021 1651 Local . 02 Pathologist provided ICD-10: M79.9, R22.31, R22.32 . 02 CPT . 949599, 897002, 118715, 316111, 746332, 518057, 374007, 141697, [id number] Specimen Comment: A courtesy copy of this report has been sent to [phone] Specimen Comment: [id number] Specimen Comment: Report sent to / DR MONAHAN Specimen Comment: A duplicate report has been generated due to demographic updates. Performed at: [facility] [address] [facility] [address], [place] [id number] MD Marin Kamara MD Phone: [phone] Performed at: 02 [facility] [address] [id number] MD Sukhdeep Rawls MD Phone: [phone]
== END | disposition home or self-care (01) ==
LOC: M.SUR 06:37
PROVIDERS: ATTEND Surgery
DX: L92.8 Other granulomatous disorders of the skin and subcutaneous tissue (principal); M25.521 Pain in right elbow; M25.522 Pain in left elbow; I10 Essential (primary) hypertension; I25.2 Old myocardial infarction; F17.210 Nicotine dependence, cigarettes, uncomplicated; Z98.890 Other specified postprocedural states; Z79.899 Other long term (current) drug therapy; Z20.822 Contact with and (suspected) exposure to COVID-19; Z86.73 Personal history of transient ischemic attack (TIA), and cerebral infarction without residual deficits; Z88.8 Allergy status to other drugs, medicaments and biological substances; Z90.710 Acquired absence of both cervix and uterus